=== PATIENT | female | born 1965 | race Caucasian/White ===

== ENCOUNTER → 2025-03-30 12:21 | Outpatient (REF) | payer OTHER, SELFPAY | LOC: WDC 12:21 | PROVIDERS: ATTENDING PHYSICIAN Family Medicine | DX: Z12.31 Encounter for screening mammogram for malignant neoplasm of breast (principal) | CPT/HCPCS: 77063; 77067 ==

== ENCOUNTER 2025-04-20 23:28 | Day surgery (SDC) | payer OTHER, SELFPAY ==
[2025-04-20 15:55] VITALS: BP 147/97
[2025-04-20 16:28] LABS: Hematocrit 44.3 % (37.0-47.0); Hemoglobin 15.7 g/dL (12.0-16.0); Mean Corp Hgb Conc. 35.4 g/dL (33.0-37.0); Mean Corpuscular Volume 85.7 fL (81.0-99.0); Nucleated Red Blood Cells % 0 %; Platelet Count 306 10^3/uL (130-400); Red Cell Dist. Width 12.6 % (11.5-14.5)
[2025-04-20 16:39] LABS: ALT (SGPT) 25 U/L (0-35); AST (SGOT) 23 U/L (14-36); Albumin 4.9 g/dl (3.5-5.0); Alkaline Phosphatase 88 U/L (38-126); Blood Urea Nitrogen 12 mg/dl (7-17); Calcium 9.0 mg/dl (8.4-10.2); Carbon Dioxide 25 mmol/L (22-30); Chloride 99 mmol/L (98-107); Glucose 120 mg/dl (70-99); Lipase 31 U/L (23-300); Potassium 3.9 mmol/L (3.5-5.1); Sodium 132 mmol/L (135-145); Total Protein 7.9 g/dl (6.3-8.2); eGFR > 60.00
[2025-04-20 18:34] VITALS: BP 165/95
[2025-04-20 19:12] VITALS: BP 178/96
[2025-04-20] MEDS: NSS 1000 IV (19:21)
[2025-04-20] MEDS: DILAUDID 0.5 MG IV ×2 (19:21→22:03)
[2025-04-20] MEDS: ZOFRAN 4 MG IV (19:21)
--- NOTE | 2025-04-20 20:50 | ED.GENMED ---
History of Present Illness
General
Chief Complaint: Abdominal Pain
Source: patient
Exam Limitations: none
Time Seen by Provider: 04/20/25 18:16
Nursing documentation reviewed up to this point in time: agreed with
History of Present Illness
History of Present Illness:
Patient is a healthy 59-year-old female who presents to the emergency department for evaluation of upper abdominal pain. Patient states symptom started yesterday evening after eating a hamburger for dinner. She describes a constant, aching pain in
her upper abdomen which radiates around to her back. Patient states that she was unable to sleep last night due to pain and has since had a few episodes of vomiting today. She denies any fever or chills. No chest pain or shortness of breath. No
diarrhea/constipation or urinary symptoms.
Of note�patient does with episode of similar symptoms last week however they resolved.
Patient has not eaten anything today. She is not on any oral anticoagulation.
Review of Systems
Review of Systems
Allergies reviewed?: Yes
All Other Systems: ROS reviewed and negative except as documented in HPI and ROS
Phy Exam
Physical Exam
Physical Exam:
Vitals: Hypertensive, mildly tachycardic. Afebrile
General: Patient is moderately uncomfortable appearing due to pain.
Skin: Warm and dry, no rashes or lesions
Head: Normocephalic, atraumatic
Eyes: Sclera nonicteric.
Throat: Protecting airway
Neck: Normal ROM, no cervical spine tenderness, no meningismus
Cardiac: Mildly tachycardic, normal rhythm. No murmurs
Pulm: Normal respiratory effort. Lungs clear bilaterally
Abdomen: Abdomen soft. Moderate tenderness in epigastric/right upper quadrant. Positive Preciado sign
Extremities: No evidence of cyanosis or edema.
Neuro: AAOx3. Grossly intact.
Psychiatric: Normal affect.
Course
Orders/Labs/Results
Orders:
Orders
04/20/25 16:09
Complete Blood Count/With Diff Urgent
Comprehensive Metabolic Panel Urgent
Lipase Urgent
04/20/25 18:43
0.9% Sodium Chloride 1000 ml [Nss] 1,000 ml IV BOLUS
HYDROmorphone [Dilaudid] 0.5 mg IV NOW STA
Ondansetron Injectable [Zofran] 4 mg IV NOW STA
US Abdomen Complete/Upper Urgent
Comment:
Reason For Exam: Upper abdominal pain, vomiting
04/20/25 20:53
HYDROmorphone [Dilaudid] 0.5 mg IV NOW STA
04/20/25 21:48
Piperacillin/Tazo 3.375 Gram [Zosyn] 3.375 gram in 50 ml IV NOW
04/20/25 22:39
Admit/Transfer Patient As Directed
Co-Sign Provider:
Level of Care: Observation services
Assign to:: Medical/Surgical
Physician / Group: Mykel
Diagnosis: Cholelithiasis
04/20/25 22:42
PRN Pain Medication Management As Directed
May give lesser potent ordered pain med per pt: Yes
preference::
Protocol:: Medication orders for pain may be administered in a
manner that supports deferring to patient preference
when the pt is:
- Requesting an ordered lesser potent pain medication.
Least to most potent pain medications are defined
as: acetaminophen < NSAID < tramadol < opioids
(morphine, oxycodone, hydromorphone).
- Requesting a lesser dose of the same medication IF
ORDERED.
- Requesting a less intrusive route of administration
if both routes are prescribed by the provider (PO <
IV).
04/20/25 22:44
Code Status As Directed
Resuscitation Status: Full Code
04/20/25 23:51
0.9% Sodium Chloride 1000 ml [Nss] 1,000 ml IV 100 mls/hr
04/20/25 23:51
Activity As Directed
Activity Level: Out of Bed-Early Mobility
Anti-embolism (ANETA) Hose As Directed
Type: Thigh high
Intake/ Output As Directed
Frequency: Per unit guidelines
Pneumatic Compression Sleeves As Directed
Type: Knee high
Vital Signs As Directed
Frequency: Per unit guidelines
DX Deep Vein Thrombosis Video Routine
04/21/25 00:00
HYDROmorphone [Dilaudid] 0.5 mg IV Q2HPRN PRN
04/21/25 01:00
Ondansetron Injectable [Zofran] 4 mg IV Q6HPRN PRN
04/21/25 05:46
Basic Metabolic Panel IN AM
Complete Blood Count/No Diff IN AM
Magnesium IN AM
04/21/25 Breakfast
NPO
Allow oral meds: No
Allow clear liquids: No
Piperacillin/Tazo 3.375 Gram [Zosyn] 3.375 gram in 50 ml IV Q6H
Abnormal Lab Results
04/20/25
16:09
WBC 14.3 H 10^3/uL
(4.8-10.8)
Absolute Neuts (auto) 12.1 H 10^3/uL
(1.4-6.5)
Absolute Monos (auto) 0.9 H 10^3/uL
(0.1-0.6)
Neutrophils % 84.1 H %
(42.2-75.2)
Lymphocytes % 9.1 L %
(20.5-51.1)
Sodium 132 L mmol/L
(135-145)
Creatinine 0.5 L mg/dL
(0.6-1.0)
Glucose 120 H mg/dl
(70-99)
04/20/25 16:09
04/20/25 16:09
Vital Signs
Initial and Last Documented VS:
Initial Vital Signs
Temp Pulse Resp BP Pulse Ox
98.3 F 104 16 147/97 100
04/20/25 15:55 04/20/25 15:55 04/20/25 15:55 04/20/25 15:55 04/20/25 15:55
Last Documented Vital Signs
Temp Pulse Resp BP Pulse Ox
97.9 F 101 16 141/88 98
04/21/25 08:15 04/21/25 08:15 04/21/25 08:15 04/21/25 08:15 04/21/25 08:15
MDM/Problems Addressed
Differential Diagnosis Includes:
Not limited to: Biliary colic, acute cholecystitis, choledocholithiasis, pancreatitis, GERD, gastric ulcer, etc.
MDM/Problems Addressed:
59-year-old female with upper abdominal pain radiating to back associated with vomiting. Symptoms started after dinner last night and been constant. History of intermittent symptoms this past week which resolved. No shortness of breath or fever.
Vital signs as above. On exam, patient appears uncomfortable due to pain. Abdomen is soft with moderate tenderness in epigastric region/RUQ w/ positive Preciado sign. Cardio/pulmonary assessment unremarkable.
Clinical picture consistent with likely biliary etiology including biliary colic, acute cholecystitis, choledocholithiasis, etc. Possible pancreatitis.
ED plan: Check labs and abdominal ultrasound. Will treat pain, give IV fluids and reassess.
Update: labs reveal leukocytosis of 14.2 with left shift. Chemistry essentially unremarkable. Lipase is normal. Ultrasound shows cholelithiasis with borderline thickened gallbladder wall.
Impression is cholelithiasis with concern for developing cholecystitis w/ persistent pain and elevated white blood cell count. Discussed with general surgeon, Dr. Hogue who accepts to his service. Patient given Zosyn in emergency department and
admitted to the hospital for further management. Plan for likely cholecystectomy tomorrow.
Chronic conditions affecting care:
N/A
Acute Exacerbation and/or Progression of Chronic Illness:
N/A
*Radiology
Radiology exam reviewed: radiology read reviewed
*Pulse Oximetry
SaO2: 100
Oxygen Mode of Delivery: Room air
Patient hypoxic: no
*EKG
Interpreted by ED Provider?: NA
*Real Estate Representative Interpretation
Rate: Real Estate Representative- N/A
*Critical Care Note
Total Time (30-74mins, 75-104mins- exclusive of procedures): Not Applicable
ED Attending Note
-
Portions of this chart may have been created with voice recognition software.� Occasional wrong word or��sound alike� substitutions may have occurred due to the inherent limitations of voice recognition software.
Discharge Plan
Departure
Patient Disposition: Admit
Date of Disposition: 04/20/25
Time of Disposition: 21:52
Presentation/result/management discussed w/ accepting MD/DO: Hospitalist
Discharge Problem:
Acute cholecystitis
Interventions
Interventions:
*Risk Screen - Suicide Last Done: 04/20/25 15:55
*General Assessment Last Done: 04/20/25 18:30
*Neglect/Abuse Screening Last Done: 04/20/25 15:55
*ED COVID-19 Vaccine History Last Done: 04/20/25 18:30
*ED Influenza Vaccine History Last Done: 04/20/25 18:30
[facility] Fall Risk Assessment Tool Last Done: 04/20/25 18:30
*Nursing Disposition Last Done: 04/20/25 23:58
[facility] Assessment Last Done: 04/20/25 18:30
Discharge Date and Time
Discharge Date/Time: 04/21/25 00:00
[2025-04-20 21:57] VITALS: BP 156/95
[2025-04-20 22:00] VITALS: BP 165/91
[2025-04-20] MEDS: ZOSYN 50 IV (22:03)
--- NOTE | 2025-04-20 22:52 | HPS.HSE ---
Addendum entered and electronically signed by Minh Diggs MD 04/21/25 07:57:
Patient is a 59 yo F with a PMH of GERD, HLD, asthma, SANDI (no CPAP), and s/p open umbilical hernia repair as a teen who presents with intermittent abdominal discomfort. Ms. Chavez states that she has had intermittent episodes of discomfort for
almost a year. Episodes were brief and mild; she attributed these to general GI discomfort. Episodes would happen primarily at night. Earlier this week, she had a similar more mild attack of discomfort. On Friday (04/19) evening she developed a
similar attack of pain which was more severe and persistent. Episode occurred after having a hamburger. She describes a general abdominal discomfort which is worse on the RIGHT side and radiates to her back. Associated nausea and vomiting.
Associated chills, no fevers. She reports constipation over the past few days. She denies any jaundice, pale stools, or tea colored urine. Family history unremarkable.
Gen: NAD
Abd: obese, soft, mld tenderness in RUQ (negative Preciado's sign), some discomfort in LLQ, ND, non-peritoneal, jaron-umbilical incision well healed
Labs and US imaging reviewed
Patient is a 59 yo F p/w acute cholecystitis versus biliary colic
The natural history and pathophysiology of biliary stone disease was briefly reviewed. Workup thus far was reviewed. Options for management including medical management with a low-fat diet for surgical management with cholecystectomy were
considered. Given her persistent symptoms and continued level of discomfort recommend cholecystectomy.
Plan for a laparoscopic cholecystectomy with possible cholangiogram. The procedure itself, as well as the risks, benefits, and alternatives was discussed. Specifically, we discussed the risks of bleeding, infection, injury to surrounding
structures (bowel, bile ducts), CBD injury, need for open procedure. Typical postprocedural recovery including pain management, activity restrictions, and the 10 to 20% risk of fluctuations in GI function were discussed. All questions answered.
Consent signed.
-- Laparoscopic cholecystectomy with IOC
-- NPO, IVF
-- Antibiotics: Zosyn
-- Pain control: Tylenol and IV Dilaudid as needed
Original Note:
Family Physician
-
Family Physician: Ayah Richardson MD
Chief Complaint
-
' Abdomen pain'
History of Present Illness
59 year old patient with PMH of Hypertension (no meds), Hyperlipidemia (diet control), GERD, Sleep apnea, seasonal Allergies, presents to ER with the complain of Abdomen pain. She describes pain as constant, aching pain in her abdomen throughout
which radiates to her back, which was interrupting her sleep as well. States abdomen pain started yesterday after having hamburger for her dinner associated with nausea and she vomited few times today, does not remember the color of emesis. She been
dry heaving afterwards. Denies fever chills, Denies chest pain shortness of breath. LBM 12. Patient had this pain on and off for few months, she noted it last week which went away on its on.
Medical History
Past Medical History
Past Medical History: Reports GERD, HTN and Hypercholesterolemia
Past Surgical History: Reports Orthopedic
Additional Past Surgical History:
deviated
Social History
Tobacco: Non-smoker
Alcohol: None
Drug: None
Living: With Family
Family History
Family History: Not pertinent
Allergies / Home Medications
Allergies reflects when Allergies were last updated in [employer].
Home Medications with original date entered in [employer]
Allergy/Medication List:
Allergies
Allergy/AdvReac Type Severity Reaction Status Date / Time
No Known Allergies Allergy Unverified 04/20/25 15:55
Review of Systems
-
History Source: Patient
A 12 point ROS was completed and negative except as noted: Yes
Constitutional: Reports No Symptoms
EENT: Reports No Symptoms
Respiratory: Reports No Symptoms
Cardiac: Reports No Symptoms
Abdomen/GI: Reports Abdominal Pain and Nausea
: Reports No Symptoms
Musculoskeletal: Reports No Symptoms
Skin: Reports No Symptoms
Neurological: Reports No Symptoms
Endocrine: Reports No Symptoms
Hematologic/Lymphatic: Reports No Symptoms
Psych: Reports No Symptoms
Physical Exam
Vital Signs
Vital Signs
Temp Pulse Resp BP Pulse Ox
98.3 F 103 16 178/96 97
04/20/25 15:55 04/20/25 18:34 04/20/25 18:34 04/20/25 19:12 04/20/25 21:45
Physical Exam
General: Well Developed, Well Nourished and No Apparent Distress
HEENT: NormoCephalic, Moist mucous membranes and Atraumatic
Respiratory: Clear and Non Labored Respirations
Cardiac: S1/S2 and Regular Rhythm
Breast: Deferred by me
GI: Non Tender (mild tender RUQ ), Non Distended and Normal Bowel Sounds
Rectal: Deferred by Provider
Genito-urinary: Deferred by me
Musculoskeletal: No Clubbing, No Cyanosis and No Edema
Skin: Warm and Dry
Neuro: Awake, AO x 3 and Nonfocal/grossly intact
Hematologic/Lymphatic: No Lymphadenopathy
Psych: Calm and Intact Judgment/Insight
Laboratory Results
-
04/20/25 16:09
04/20/25 16:09
Laboratory Results
Total Bilirubin 1.1 mg/dl (0.2-1.3) 04/20/25 16:09
AST 23 U/L (14-36) 04/20/25 16:09
ALT 25 U/L (0-35) 04/20/25 16:09
Alkaline Phosphatase 88 U/L (38-126) 04/20/25 16:09
Lipase 31 U/L (23-300) 04/20/25 16:09
Data Reviewed
-
Ultrasound: Report Reviewed by me
Lab Data: Labs Reviewed by me
Impression/Plan
-
59 year old patient with abdomen pain
# Abdomen pain likely due to Cholelithiasis Suspected acute cholecystitis.
US Abdomen: Cholelithiasis without overt sonographic evidence for acute cholecystitis, noting limited evaluation given patient received pain medication.
WBC14.3
chills, Afebrile
HR 103 ( will obtain EKG)
Continue Zosyn
Continue Zofran
Continue IV Dilaudid
Continue IV Fluids
NPO
Labs in AM
Admit to Dr. Hogue
# Essential HTN
elevated BP (likely due to pain)
Monitor
DASH diet
# Hyperlipemia
Diet, exercise
# GERD
Omeprazole prn
# Seasonal Allergies
Singulair
# Sleep Apnea
SCD's
Full Code
[2025-04-20 23:00] VITALS: BP 134/67
[2025-04-21] VITALS (9 sets, daily range): BP systolic 112–154; BP diastolic 58–93; BMI 29.9
[2025-04-21] MEDS: NSS 1000 IV ×3 (00:26→19:39)
[2025-04-21] MEDS: MELATONIN 5 MG PO (00:37)
[2025-04-21] MEDS: DILAUDID 0.5 MG IV ×5 (00:37→20:45)
--- NOTE | 2025-04-21 01:29 | TRANSFER ---
Received patient on stretcher from ED at 2350 dx cholelithiasis, patient reported 3/10 pain to gen abd. VS as documented. Assessments completed. Discussed plan of care with patient. IVF as ordered. CHG wipes provided. Call mejia within reach, bed in
lowest position.
[2025-04-21] MEDS: ZOSYN 50 IV ×3 (05:24→23:31)
[2025-04-21 06:55] LABS: Blood Urea Nitrogen 10 mg/dl (7-17); Calcium 8.0 mg/dl (8.4-10.2); Carbon Dioxide 26 mmol/L (22-30); Chloride 103 mmol/L (98-107); Estimated Creatinine Clearance 87 ml/min; Glucose 104 mg/dl (70-99); Magnesium 2.3 mg/dl (1.6-2.3); Potassium 3.9 mmol/L (3.5-5.1); Sodium 132 mmol/L (135-145); eGFR > 60.00
[2025-04-21 07:42] LABS: Hematocrit 38.9 % (37.0-47.0); Hemoglobin 13.5 g/dL (12.0-16.0); Mean Corp Hgb Conc. 34.7 g/dL (33.0-37.0); Mean Corpuscular Volume 87.6 fL (81.0-99.0); Platelet Count 239 10^3/uL (130-400); Red Cell Dist. Width 12.9 % (11.5-14.5)
--- NOTE | 2025-04-21 07:57 | W.SUR.PREOP ---
Pre-Operative Surgical Note
-
I have examined this patient prior to the performance of the scheduled procedure.
The patient's condition is unchanged from the time of the current History and
Physical and the patient is able to undergo the scheduled procedure.
[2025-04-21] MEDS: ZOFRAN 4 MG IV ×2 (08:41→19:39)
[2025-04-21] MEDS: COMPAZINE 10 MG IV (11:18)
[2025-04-21] MEDS: ZOSYN IV (16:22)
--- NOTE | 2025-04-21 18:08 | W.IMMPOSTOP ---
Surgical Immed Post Op Note
-
Primary Surgeon: Caterina
Assisting Surgeon: LEISA Toro
Pre-op Diagnosis: Acute cholecystitis
Post-op Diagnosis: Acute cholecystitis
Procedure Performed: Laparoscopic cholecystectomy with IOC
Anesthesia Type: General
Specimen / Cultures:
1. Gallbladder
Estimated Blood Loss: 3 cc
Complications: None
Operative Findings:
1. Scarring and inflammation at infundibulum, large stone
2. Critical view of safety, IOC negative
3. Artery taken with clips, duct with price load stapler
--- NOTE | 2025-04-21 21:52 | PTCARENOTE ---
19:30 pt rec'vd from PACU, drowsy but easily aroused to voice, sx site assessed with QUARTZ CUTTER, incision sites glued, dry. Pts IVF infusing, re-oriented to unit as well as family at bedside. VS WNL, denies pain. plan of care reviewed
[2025-04-22] MEDS: DILAUDID 0.5 MG IV ×2 (00:57→04:45)
[2025-04-22 03:13] VITALS: BP 113/60
[2025-04-22] MEDS: ZOSYN 50 IV (05:47)
[2025-04-22 08:00] VITALS: BP 111/67
[2025-04-22] MEDS: NSS IV (08:08)
[2025-04-22] MEDS: ROXICODONE 5 MG PO (08:10)
--- NOTE | 2025-04-22 10:27 | W.PN.GS2 ---
Today's Communication / Plan
-
-- DC today
Assessment / Plan
-
Patient is a 59 yo F p/w acute cholecystitis POD#1 s/p laparoscopic cholecystectomy with IOC
AVSS
Recovering well. No postoperative concerns.
-- Low-fat diet
-- DC IVF
-- Pain control: Tylenol, Toradol, Oxycodone
-- Abx: None further needed
-- DVT: Lovenox
-- DC today
Subjective Data
-
Date of Service: April 22, 2025
Reports abdominal soreness with movement, overall well-controlled. Mild nausea overnight, none currently. Tolerated low-fat diet for breakfast without nausea or vomiting. Passing flatus, no BM. Afebrile.
Objective Data
-
Intake and Output
04/21/25 04/22/25 04/23/25
06:59 06:59 06:59
Intake Total 50 / 50 0 / 1880
Balance 50 / 50 1879 / 188
Intake:
Oral fluids 480 / 480
IV fluids (Total) 1300 / 1300
Normosol 100 / 100
IV piggybacks 50 / 50 100 / 100
Other:
Number of approximated MODERATE 2 1
amounts of urine
Number of approximated LARGE 2
amounts of urine
Vital Signs
Temp Pulse Resp BP Pulse Ox
98.4 F 64 16 111/67 95
04/22/25 08:00 04/22/25 08:00 04/22/25 08:00 04/22/25 08:00 04/22/25 08:00
Lab Results
04/21/25 05:46
04/21/25 05:46
Calcium 8.0 mg/dl (8.4-10.2) L 04/21/25 05:46
Magnesium 2.3 mg/dl (1.6-2.3) 04/21/25 05:46
Total Bilirubin 1.1 mg/dl (0.2-1.3) 04/20/25 16:09
AST 23 U/L (14-36) 04/20/25 16:09
ALT 25 U/L (0-35) 04/20/25 16:09
Alkaline Phosphatase 88 U/L (38-126) 04/20/25 16:09
Total Protein 7.9 g/dl (6.3-8.2) 04/20/25 16:09
Albumin 4.9 g/dl (3.5-5.0) 04/20/25 16:09
Physical Exam
-
Gen: NAD
Abd: soft, mild/moderate tenderness, ND, non-peritoneal, incisions c/d/i - no erythema, ecchymosis or drainage
Patient has a wallace catheter: No
Patient has a central line: No
--- NOTE | 2025-04-22 11:52 | W.DS.TRANS ---
DC Summary - [facility]
-
Discharge Instructions:
Discharge Diagnosis/Procedures Acute cholecystitis status post laparoscopic
cholecystectomy with cholangiogram
Diet Low Fat,As tolerated
Additional Diets If you have loose stools after your surgery,
switch to a low fat diet
Activity No strenuous activity
Additional Activity do not lift over 20lbs for the next 2-3 weeks
Driving Restrictions No driving for 24 hours
Bathing Restrictions OK to Shower
Wound Care Glue will flake off your incisions over the next
2 weeks. Avoid soaking in tubs or pools for the
next week. Avoid scrubbing or picking glue off
your incisions.
Instructions:
Stand-Alone Forms:
Changes to Home Medications: No
Discharge Medications:
DC Medications w/original date entered in [facility]
montelukast 10 mg tablet (Singulair) 10 mg PO DAILY Lung/Breathing Issues 04/21/25
omeprazole 20 mg capsule,delayed release 20 mg PO DAILY Gastrointestinal Issue 04/21/25
acetaminophen 325 mg tablet 650 mg (2 x 325 mg) PO Q4HPRN PRN mild pain #1 tab 04/22/25
ibuprofen 200 mg tablet 400 - 600 mg (2 - 3 x 200 mg) PO Q6HPRN PRN moderate pain #1 tab 04/22/25
oxycodone 5 mg tablet 5 mg PO Q4HPRN PRN breakthrough/severe pain #10 tabs 04/22/25
Home Medication Changes
Pending Results: No
--- NOTE | 2025-04-22 12:26 | CM ---
Met with patient at bedside
Pharmacy verified: [facility] @ [address] [place] [address]
Lives alone; one story home; bath has walk-in shower w/ grab bar
Independent w/ ambulation, stairs, and ADLs, drives; works daytime caregiver; no DME
NO history of SNF or Home Health utilization
Sister in Law will provide transport home
Plan: Discharge to home today; no needs
== END 2025-04-22 11:17 | disposition home or self-care (01) ==
LOC: SDS 23:28
PROVIDERS: Emergency Medicine; Nurse Practitioner Gerontology; ATTENDING PHYSICIAN Surgery; EMERGENCY PHYSICIAN Emergency Medicine; FAMILY PHYSICIAN Family Medicine
DX: K80.00 Calculus of gallbladder with acute cholecystitis without obstruction (principal); K80.10 Calculus of gallbladder with chronic cholecystitis without obstruction
CPT/HCPCS: 47563; 74300; 76000; 76700; 80048; 80053; 83690; 83735; 85025; 85027; 88304; 93005; 96365; 96375; 96376; 99285; A4300

== ENCOUNTER → 2025-05-13 08:01 | Outpatient (REF) | payer OTHER, SELFPAY | LOC: DHSLP 08:01 | PROVIDERS: ATTENDING PHYSICIAN Nurse Practitioner Family | DX: G47.33 Obstructive sleep apnea (adult) (pediatric) (principal); R06.83 Snoring; E66.9 Obesity, unspecified | CPT/HCPCS: 95806 ==